=== PATIENT | female | born 1965 | race African-American/Black ===

== ENCOUNTER → 2017-01-04 | Day surgery (SDC) | payer BC ==
[~2017-01-04] MED LIST: FENTANYL PF 100 MCG/2 ML VIAL. IV PRN; HYDROMORPHONE 2 MG/ML VIAL. IV PRN; IV RINGERS,LACTATED 1000ML 1,000 ML IV SCH; LIDOCAINE 1% 1 ML SYRINGE. ID PRN; MORPHINE SULFATE 2 MG/ML DISP.SYRIN. IV PRN; ONDANSETRON PF 4 MG/2 ML VIAL. IV PRN; PROCHLORPERAZINE 10 MG/2 ML VIAL. IV PRN; PROPOFOL 40 ML IV ONE; TRIA1CAP3 PO
--- NOTE | 2017-01-04 09:02 | PDOC1 ---
HISTORY & PHYSICAL H&P Ginny Norton [id number] 1965 12/21/2016 02:30 PM 10/03 [employer] [facility], [facility] [address] [place] [address] Ph. [phone] Patient: Ginny Norton Date of : 1965 Date: 12/21/2016 2:30 PM Visit Type: Consult This 51 year old female presents for Screening colonoscopy. History of Present Illness: 1. Screening colonoscopy No prior screening. Denies risk factors. Pertinent negatives include abdominal pain, change in bowel habits, change in stool caliber, constipation, decreased appetite, diarrhea, melena, nausea, rectal bleeding, vomiting, weight gain and weight loss. Additional information: No family history of colon cancer , No family history of Crohn's/colitis, No NSAID/ASA use and never had colonoscopy. INTAKE COMMENTS: Intake Comments: Nurse Note: the pt is here today for a screening colonoscopy. PROBLEM LIST: Problem Description Onset Date Annual physical exam 10/01/2015 Benign essential hypertension 10/14/2010 Anemia 10/14/2010 Atypical glandular cells on cervical Papanicolaou smear 10/14/2010 Sleep apnea 05/09/2012 Insomnia 05/09/2012 PAST MEDICAL/SURGICAL HISTORY (Detailed) Disease/disorder Onset Date Management Date Comments D&C 2003 2010 Hysterectomy 2010 Abnormal pap smear 2009 colposcopy with biopsy Anemia Hypertension Medications (Active): Started Medication Directions Instruction Stopped 11/08/2016 Fabiano 10 mg-40 mg tablet TAKE 1 TABLET DAILY 11/08/2016 Dyazide 37.5 mg-25 mg capsule take 1 capsule by oral route every day 11/08/2016 Flonase 50 mcg/actuation nasal spray,suspension spray 1 spray by intranasal route 2 times every day in each nostril 11/08/2016 phentermine 37.5 mg tablet take 1 tablet (37.5MG) by oral route every day before breakfast 12/16/2017 11/08/2016 trazodone 100 mg tablet take 1 tablet (100MG) by oral route every day at bedtime Allergies: Ingredient Reaction Medication Name Comment NO KNOWN DRUG ALLERGIES REVIEW OF SYSTEMS System Neg/Pos Details Constitutional Negative Chills, fever, malaise, weight gain and weight loss. ENMT Negative Sore throat. Eyes Negative Double vision. Respiratory Negative Dyspnea and wheezing. Cardio Negative Chest pain and irregular heartbeat/palpitations. GI Positive See HPI. GI Negative Abdominal pain, change in bowel habits, change in stool caliber, constipation, decreased appetite, diarrhea, melena, nausea, see HPI, rectal bleeding and vomiting. Negative Dysuria and hematuria. Endocrine Negative Cold intolerance and heat intolerance. Psych Negative Anxiety. Integumentary Negative Hives and rash. MS Negative Joint pain. Moy/Lymph Negative Easy bleeding and easy bruising. Allergic/Immuno Negative Food allergies. PHYSICAL EXAM: Exam Findings Details Constitutional Normal Well developed. Eyes Normal Conjunctiva - Right: Normal, Left: Normal. Sclera - Right: Normal, Left: Normal. Nasopharynx Normal Lips/teeth/gums - Normal. Neck Exam Normal Inspection - Normal. Thyroid gland - Normal. Respiratory Normal Inspection - Normal. Auscultation - Normal. Cardiovascular Normal Regular rate and rhythm. No murmurs, gallops, or rubs. Vascular Normal Pulses - Carotids: Normal, Femoral: Normal, Dorsalis pedis: Normal. Abdomen Normal Inspection - Normal. Anterior palpation - No guarding. No abdominal tenderness. No hepatic enlargement. No splenic enlargement. No hernia. No Ascites. Skin Normal Inspection - Normal. Extremity Normal No edema. Psychiatric Normal Oriented to time, place, person, and situation. Appropriate mood and effect. Assessment/Plan # Detail Type Description 1. Assessment Encounter for screening colonoscopy (Z12.11). Patient Plan schedule colonoscopy at [facility] Plan Orders Further diagnostic evaluations ordered today include(s) Colonoscopy to be performed today. She is to schedule a follow-up visit with Ramón Polo MD upon completion of work-up Electronically signed by: Ramón Polo MD 12/21/2016 03:19 PM Document generated by: Ramón Polo 12/21/2016 03:19 PM Dick Qureshi MD, Family Practice; Gerry Loomis MD Internal Medicine; Nathan Art MD, Internal Medicine; Mickey Polo MD Internal Medicine; Ramón Polo MD, Gastroenterology; Sushil Clark MD, Rheumatology, S. Marv Phillip, Physical Medicine/Rehab Jony Mejias APRN ------ 01/04/17 Patient seen and examined. No change in H&P RAMÓN POLO MD Jan 04, 2017 09:02
--- NOTE | 2017-01-04 10:01 | PDOC4 ---
GI OP Report - Dr. Donovan Date/Time DATE: 01/04/17 TIME: 10:00 Attending Physician Ramón Donovan MD Referring Physician Indications Screening for colorectal malignant neoplasm Pre-Op See the Anesthesia note for documentation of the administered medications Procedures Colonoscopy Findings - The entire examined colon is normal on direct and retroflexion views. - No specimens collected. Plan - Discharge patient to home. - Patient has a contact number available for emergencies. The signs and symptoms of potential delayed complications were discussed with the patient. Return to normal activities tomorrow. Written discharge instructions were provided to the patient. - Resume regular diet. - Continue present medications. - Repeat colonoscopy in 10 years for surveillance. - Return to my office as needed. RAMÓN DONOVAN MD Jan 04, 2017 10:01
[2017-01-04 10:32] VITALS: BP 162/101
== END | disposition home or self-care (01) ==
LOC: ENDOS 08:18
PROVIDERS: ATTEND Internal Medicine Gastroenterology
DX: Z12.11 Encounter for screening for malignant neoplasm of colon (principal); I10 Essential (primary) hypertension; D64.9 Anemia, unspecified
CPT/HCPCS: 45378; J2704

== ENCOUNTER → 2019-12-19 | Outpatient (CLI) | payer BC ==
[2017-01-04 10:32] VITALS: BP 162/101
[~2019-12-19] MED LIST changes: -FENTANYL PF 100 MCG/2 ML VIAL. IV PRN; -HYDROMORPHONE 2 MG/ML VIAL. IV PRN; -IV RINGERS,LACTATED 1000ML 1,000 ML IV SCH; -LIDOCAINE 1% 1 ML SYRINGE. ID PRN; -MORPHINE SULFATE 2 MG/ML DISP.SYRIN. IV PRN; -ONDANSETRON PF 4 MG/2 ML VIAL. IV PRN; -PROCHLORPERAZINE 10 MG/2 ML VIAL. IV PRN; -PROPOFOL 40 ML IV ONE
--- NOTE | 2019-12-19 17:39 | RAD ---
History: Routine screening. Technique: Bilateral digital mammographic routine views were obtained with CAD - computer aided detection. Comparison: 09/10/2016. Findings: Breast Tissue Density C : The breast tissue is heterogeneously dense. Scattered fibroglandular elements may obscure underlying pathology. In the right breast, there are no suspicious masses, microcalcifications or areas of architectural distortion. In the left breast, an asymmetry in the medial posterior left breast needs additional imaging with additional mammographic views. It is better seen on the CC view. Impression: Incomplete. Left breast needs additional imaging. Recommend left spot compression view and a full-field lateral view. Magnification views could be helpful as well. BI-RADS Category 0: Incomplete: Need additional imaging evaluation. Left breast needs additional imaging. Additional views recommended Your mammogram demonstrates that you have dense breast tissue, which could hide abnormalities, and if you have other risk factors for breast cancer that have been identified, you might benefit from supplemental screening tests that may be suggested by your ordering physician. Dense breast tissue, in and of itself, is a relatively common condition. This information is not provided to cause undue concern, but rather to raise your awareness and to promote discussion with your physician regarding the presence of other risk factors, in addition to dense breast tissue. A report of your mammography results will be sent to you and your physician. You should contact your physician if you have any questions or concerns regarding this report. A mammogram does not have 100% sensitivity and therefore a negative imaging study should not delay further work up of a suspicious abnormality. The patient will receive a letter with the results in the mail. Patient information is entered into the reminder system with a target due date for the next screening mammogram. The patient will receive a reminder. "Our facility is accredited by the [employer] Mammography Program." BI-RADS 0 -- incomplete assessment
== END | disposition home or self-care (01) ==
LOC: MAMMO 14:30
PROVIDERS: ATTEND Internal Medicine
DX: Z12.31 Encounter for screening mammogram for malignant neoplasm of breast (principal)
CPT/HCPCS: 77067

== ENCOUNTER → 2019-12-24 | Outpatient (CLI) | payer BC ==
[2017-01-04 10:32] VITALS: BP 162/101
--- NOTE | 2019-12-24 14:51 | RAD ---
Examination: DIGITAL DIAGNOSTIC LT History: Abnormal mammogram Comparison/Correlation: 12/19/2019, 09/10/2016 screening exam FINDINGS: Digital left diagnostic mammographic images were acquired. Left ML image was acquired. Spot compression imaging of the left breast in the MLO and CC projections was performed at the inner posterior breast at the site of interest. CAD was utilized. There are scattered areas of fibroglandular density. No persistent asymmetry is identified upon spot compression imaging. No suspicious mass identified on spot compression imaging. IMPRESSION: BI-RADS Category: 1: Negative. Annual mammography is recommended. Electronically signed by: Juan Antonio Estrada MD (12/24/2019 2:49 PM) [id number]
== END | disposition home or self-care (01) ==
LOC: MAMMO 09:58
PROVIDERS: ATTEND Internal Medicine
DX: R92.8 Other abnormal and inconclusive findings on diagnostic imaging of breast (principal)
CPT/HCPCS: 77065

== ENCOUNTER → 2021-12-15 | Outpatient (CLI) | payer BC ==
[2017-01-04 10:32] VITALS: BP 162/101
--- NOTE | 2021-12-15 17:50 | RAD ---
DATE: 12/15/2021 EXAM: MG 2D BILAT SCREENING HISTORY: Screening COMPARISON: 10/25/2014, 09/07/2016, 12/19/2019 This study was interpreted with the benefit of Computerized Aided Detection (CAD). Breast Density: HETERO The breast parenchyma is heterogenously dense, which could reduce sensitivity of mammography. Breast parenchyma level C. FINDINGS: There is a 6 mm ovoid asymmetry in the left breast along the posterior nipple line, 7 cm fr om the nipple on MLO view. No suspicious mass in the right breast. No calcifications or architectural distortion. IMPRESSION: 6 mm asymmetry in the left breast. Recommend spot compression MLO view and possible ultra sound. BI-RADS CATEGORY: 0 INCOMPLETE: NEEDS ADDITIONAL IMAGING EVALUATION AND/OR PRIOR MAMMOGRAMS FOR JOEL RISON. RECOMMENDED FOLLOW-UP: ADD ADDITIONAL IMAGING PQRS compliance statement: Patient information was entered into a reminder system with a target due d ate for the next mammogram. Mammography is a sensitive method for finding small breast cancers, but it does not detect them all a nd is not a substitute for careful clinical examination. A negative mammogram does not negate a clin ically suspicious finding and should not result in delay in biopsying a clinically suspicious abnorma lity. "Our facility is accredited by the [employer] Mammography Program." Electronically signed by: Stephanie Escudero MD (12/15/2021 5:48 PM) [id number]
== END ==
LOC: MAMMO 14:34
PROVIDERS: ATTEND Internal Medicine
DX: Z12.31 Encounter for screening mammogram for malignant neoplasm of breast (principal)
CPT/HCPCS: 77067

== ENCOUNTER → 2021-12-28 | Outpatient (CLI) | payer BC ==
[2017-01-04 10:32] VITALS: BP 162/101
--- NOTE | 2021-12-28 10:50 | RAD ---
INDICATION: 56 year-old female presents for diagnostic workup of 6 mm left breast asymmetry. No famil y history of breast cancer indicated. TECHNIQUE: Diagnostic 3-D spot compression in the MLO projection. Full field mediolateral images of t he left breast was obtained using digital technique and analyzed with computer-aided detection softw are. Targeted high resolution sonography of the region of concern was also performed. COMPARISON: Screening mammogram from 12/15/2021 and priors BREAST COMPOSITION: The breasts are heterogeneously dense, which may obscure small masses. FINDINGS: MAMMOGRAM: The asymmetry resolves on spot compression and is not appreciated on the true lateral view, favoring parenchymal summation. Ultrasound: Targeted left breast ultrasound from the 2-4:00 position middle to posterior depth as well as the 8-1 0:00 positions, middle to posterior depth reveals normal scattered and heterogenous fibroglandular ti ssue. No suspicious abnormality. This is felt to correlate with the mammographic findings. Left axillary lymph nodes demonstrate a normal morphology. IMPRESSION: No evidence of left breast malignancy. RECOMMENDATION: Routine screening mammogram in one year. BI-RADS 1: Negative Electronically signed by: Edin Felix DO (12/28/2021 10:47 AM) [id number]
== END ==
LOC: MAMMO 09:19
PROVIDERS: ATTEND Internal Medicine
DX: R92.8 Other abnormal and inconclusive findings on diagnostic imaging of breast (principal)
CPT/HCPCS: 76641; 77065